=== PATIENT | female | born 1960 | race Caucasian/White ===

== ENCOUNTER 2016-12-12 14:24 | Inpatient (IN) | payer OTHER ==
[~2016-12-12] VITALS: Ht 152.4 cm; Wt 100.9 kg
[~2016-12-12 14:24] MED LIST: VENTAER INH
[2016-12-20] MEDS ORDERED: ACETAMINOPHEN 1000 MG/100 ML VIAL IV ONE (08:25)
[2016-12-20] MEDS ORDERED: metroNIDAZOLE 500 MG INJ 100 ML IV ONE (08:25)
[2016-12-20] MEDS ORDERED: ONDANSETRON HCL 4 MG/2 ML VIAL ONE (08:26)
[2016-12-20 08:29] VITALS: BP 138/77; PULSE 78; RESP 20; TEMP 97.7; O2SAT 96
[2016-12-20] MEDS ORDERED: OMEP20TA PO (08:29)
[2016-12-20] MEDS ORDERED: VENTAER INH (08:29)
--- NOTE | 2016-12-20 08:49 | EKG ---
Date Performed: 12/20/2016 Time Performed: 08:05:50 PTAGE: 56 years EKG: Sinus rhythm WITH FIRST DEGREE AV BLOCK NONSPECIFIC ST & T-WAVE ABNORMALITY ABNORMAL ECG NO PREVIOUS TRACING DOCTOR: Júnior Vargas Interpretating Date/Time 12/20/2016 08:47:28
[2016-12-20] MEDS ORDERED: LACTATED RINGER'S 1000 ML IV PRN (09:00)
[2016-12-20] MEDS ORDERED: ONDANSETRON HCL 4 MG/2 ML VIAL IV PUSH SCH (09:00)
[2016-12-20] MEDS ORDERED: INSULIN HUMAN REGULAR 1,000 UNITS/10 ML VIAL SQ PRN (09:00)
[2016-12-20] MEDS ORDERED: SODIUM CHLORID 0.9% 500 ML IV PRN (09:00)
[2016-12-20] MEDS ORDERED: POVIDONE IODINE 5% (ANTISEPSIS KIT) 4 APPLICATIONS EACH NARE PRN (09:00)
[2016-12-20] MEDS ORDERED: ACETAMINOPHEN 1000 MG/100 ML VIAL IV SCH (09:00)
[2016-12-20] MEDS ORDERED: METOPROLOL TARTRATE 25 MG TAB PO PRN (09:00)
[2016-12-20] MEDS ORDERED: CHLORHEXIDINE GLUCONATE 2 % 1 PACK (2 CLOTHS) TOPICAL PRN (09:00)
[2016-12-20] MEDS ORDERED: ceFAZolin 2 GM PREMIX 50 ML IV SCH (09:00)
[2016-12-20] MEDS ORDERED: metroNIDAZOLE 500 MG INJ 100 ML IV SCH (09:00)
[2016-12-20 12:00] VITALS: BP 139/81; PULSE 83; RESP 16; TEMP 95.5; O2SAT 91
[2016-12-20] MEDS ORDERED: LACTATED RINGER'S 1000 ML INJ 1,000 ML IV ONE (12:00)
[2016-12-20] MEDS ORDERED: ONDANSETRON HCL 4 MG/2 ML VIAL IV PUSH ONE (12:00)
[2016-12-20] MEDS ORDERED: ePHEDrine/NS 25 MG/5 ML SYR IV ONE (12:00)
[2016-12-20] MEDS ORDERED: PHENYLEPH/NS 1000 MCG/10 ML SYR IV ONE (12:00)
[2016-12-20] MEDS ORDERED: PROPOFOL 200 MG/20 ML AMP IV ONE (12:00)
[2016-12-20] MEDS ORDERED: BUPIVACAINE/EPINEPHRINE 0.25% 50 ML VIAL INFIL ONE (12:47)
[2016-12-20] MEDS ORDERED: SUGAMMADEX SODIUM 200 MG/2 ML VIAL IV PUSH ONE ×2 (16:21)
[2016-12-20] MEDS ORDERED: NALOXONE HCL 0.4 MG/ML AMP IV PRN (16:45)
[2016-12-20] MEDS ORDERED: MAGNESIUM HYDROXIDE SUSP 30 ML CUP PO PRN (16:45)
[2016-12-20] MEDS ORDERED: Post-op Orders (for Pharmacy) MISC XX ONE (16:45)
[2016-12-20] MEDS ORDERED: SODIUM CHLORIDE 0.9% FLUSH 10 ML FLUSH IV FLUSH PRN (16:45)
[2016-12-20] MEDS ORDERED: METOCLOPRAMIDE HCL 10 MG/2 ML VIAL IVS PRN (16:45)
[2016-12-20] MEDS ORDERED: *ONDANSETRON 4 MG VIAL PERIprocedural Use ONLY ONE (16:55)
[2016-12-20] MEDS ORDERED: MORPHINE SULFATE 30 MG/30 ML PCA IV SCH (17:00)
[2016-12-20] MEDS ORDERED: PROMETHAZINE HCL 25 MG SUPP RECTAL ONE (17:09)
[2016-12-20] MEDS ORDERED: fentaNYL CITRATE 250 MCG/5 ML AMP ONE ×2 (17:21→19:00)
[2016-12-20] MEDS: SODIUM CHLOR 0.9% 1000 ML INJ 1,000 ML IV SCH (17:34)
[2016-12-20] MEDS ORDERED: *morphine SULFATE 8 MG/ML PERIprocedure ONLY ONE (17:37)
--- NOTE | 2016-12-20 17:42 | RADRPT ---
EXAM DATE/TIME: 12/20/2016 17:07 [facility] COMPARISON: No previous studies available for comparison. INDICATIONS : Post laparoscopic paraesophageal hernia repair. Evaluate lung status. MEDICAL HISTORY : Asthma. SURGICAL HISTORY : Cholecystectomy. ENCOUNTER: Initial ACUITY: 1 day PAIN SCORE: Non-responsive. LOCATION: Bilateral chest FINDINGS: There is right sided pneumothorax with about 15-16 mm separation of apical pleural layers. The left l veronica is satisfactorily inflated. There is no definite infiltrate or effusion. Accounting for significa nt rotation, the cardiac contours are grossly unremarkable. CONCLUSION: Moderate right pneumothorax Singh Matos MD on December 20, 2016 at 17:37 Board Certified Radiologist. This report was verified electronically.
[2016-12-20] MEDS ORDERED: KETOROLAC TROMETHAMINE 30 MG/ML (IVP) VIAL ONE (17:49)
[2016-12-20] MEDS ORDERED: PROMETHAZINE HCL 25 MG SUPP RECTAL SCH (18:15)
[2016-12-20] MEDS ORDERED: METOCLOPRAMIDE HCL 10 MG/2 ML VIAL IV ONE (18:15)
[2016-12-20] MEDS ORDERED: KETOROLAC TROMETHAMINE 30 MG/ML (IVP) VIAL IV PUSH ONE (18:15)
[2016-12-20] MEDS ORDERED: DO NOT ADM ANY ANTICOAGULANT DRUGS PRN (18:15)
[2016-12-20] MEDS ORDERED: MIDAZOLAM HCL 5 MG/5 ML VIAL ONE (19:00)
--- NOTE | 2016-12-20 19:29 | PD.RAD ---
Post Procedure Progress Note Pre Procedure Diagnosis: (1) Pneumothorax Post Procedure Diagnosis: (1) Pneumothorax Procedure Date: Dec 20, 2016 Supervising Radiologist: Singh Matos Proceduralist/Assist: RT Chris(R)() Anesthesia: Local, Conscious Sedation Plan of Activity Patient to Unit: PACU Patient Condition: Fair See PACS Report for procedural detail/treatment Drainage Procedure Procedure 1 Imaging Guidance: Fluoroscopy Side: Right Procedure Type: Chest Tube Non-Tunneled Procedure: Placement South Korean: 10 Drainage: Pleurovac Singh Matos MD Dec 20, 2016 19:28
--- NOTE | 2016-12-20 19:54 | RADRPT ---
EXAM DATE/TIME: 12/20/2016 19:07 [facility] COMPARISON: No previous studies available for comparison. INDICATIONS : Patient presents with right sided pneumothorax in need of chest tube placement for lung reinflation. MEDICAL HISTORY : Fatty liver disease Sleep apnea Asthma SURGICAL HISTORY : Hiatal hernia repair AAKASH Luana ENCOUNTER: Initial ACUITY: 1 day PAIN SCORE: 0/10 LOCATION: N/A FLUORO TIME: 2.9 minutes IMAGE SERIES: 0 SEDATION TIME: minutes MEDICATION(S): 1.) 1 mg midazolam (Versed) IV 2.) 50 mcg fentanyl (Sublimaze) IV DEVICE(S): 1.) 10 Portuguese non-locking catheter 30CM PROCEDURE : 1. Fluoroscopically guided chest tube placement. 2. Conscious sedation with continuous EKG and oximetry monitoring. The risks, benefits and alternatives to the procedure were explained and verbal and written consent w as obtained. The site was prepped in sterile fashion. Full sterile technique was used, including ca p, mask, sterile gloves and gown and a large sterile sheet. Hand hygiene and 2% chlorhexidine and/or betadine/alcohol prep was utilized per protocol for cutaneous antisepsis. The skin and subcutaneous tissues were infiltrated with local anesthetic solution. With fluoroscopic guidance the chest was punctured between the first and second interspace and the pr escribed catheter was placed in the lung apex. Wall suction was applied. Post procedure images demon strate satisfactory position of the tube. The catheter was sutured in place and a Percu-Stay was juliana lied. Conscious sedation was performed with the prescribed dosages and duration as above in the presence of an independent trained radiology nurse to assist in the monitoring of the patient. EKG and oximetry remained stable throughout the procedure. The patient tolerated the procedure well and there were n o complications. The patient was sent to post anesthesia recovery in stable condition. CONCLUSION: Uncomplicated chest tube placement as above. Singh Matos MD on December 20, 2016 at 19:53 Board Certified Radiologist. This report was verified electronically.
--- NOTE | 2016-12-20 20:09 | RADRPT ---
EXAM DATE/TIME: 12/20/2016 19:45 [facility] COMPARISON: CHEST SINGLE AP, December 20, 2016, 17:07. INDICATIONS : Post chest tube placement. MEDICAL HISTORY : Asthma. SURGICAL HISTORY : Cholecystectomy. ENCOUNTER: Subsequent ACUITY: 1 day PAIN SCORE: Non-responsive. LOCATION: Bilateral chest FINDINGS: There has been interval placement of a right apical pigtail thoracostomy tube with resolution of righ t pneumothorax. The lungs are clear and well-inflated. Cardiac contours are stable and satisfactory. CONCLUSION: Chest tube placement with resolution of pneumothorax Singh Matos MD on December 20, 2016 at 20:06 Board Certified Radiologist. This report was verified electronically.
[2016-12-20] MEDS: metroNIDAZOLE 500 MG INJ 100 ML IV SCH (20:28)
[2016-12-20] MEDS: SODIUM CHLORIDE 0.9% FLUSH 10 ML FLUSH IV FLUSH SCH (21:00)
[2016-12-20 21:36] VITALS: O2SAT 96
[2016-12-20] MEDS: PCA - TOTAL MG MORPHINE DELIVERED PER SHIFT SCH (22:00)
[2016-12-20] MEDS: ONDANSETRON HCL 4 MG/2 ML VIAL IV PRN (22:43)
[2016-12-21] VITALS (8 sets, daily range): BP systolic 93–132; BP diastolic 53–74; PULSE 67–98; RESP 16–18; TEMP 96.1–99.2; O2SAT 94–98
[2016-12-21] MEDS: SODIUM CHLOR 0.9% 1000 ML INJ 1,000 ML IV SCH ×3 (03:33→20:55)
[2016-12-21] MEDS: metroNIDAZOLE 500 MG INJ 100 ML IV SCH ×2 (04:57→12:40)
[2016-12-21] MEDS: PCA - TOTAL MG MORPHINE DELIVERED PER SHIFT SCH ×3 (06:00→20:55)
--- NOTE | 2016-12-21 06:52 | RADRPT ---
EXAM DATE/TIME: 12/21/2016 06:19 [facility] COMPARISON: CHEST EXPIRATION ONLY, December 20, 2016, 19:45. INDICATIONS : Evaluate pneumothorax and chest tube on right, no coughing or shortness of breath MEDICAL HISTORY : asthma SURGICAL HISTORY : Cholecystectomy. hernia repair ENCOUNTER: Subsequent ACUITY: 2 days PAIN SCORE: 0/10 LOCATION: Right chest FINDINGS: A single portable frontal view of the chest shows a small caliber right thoracostomy tube. No pneumot horax. Heart is mildly enlarged. Bibasilar parenchymal consolidation. No effusions. Degenerative spin e. CONCLUSION: 1. No pneumothorax. 2. Bibasilar atelectasis. 3. Cardiomegaly. Arben Schaefer Jr., MD on December 21, 2016 at 6:50 Board Certified Radiologist. This report was verified electronically.
[2016-12-21] MEDS: SODIUM CHLORIDE 0.9% FLUSH 10 ML FLUSH IV FLUSH SCH ×2 (09:28→20:55)
[2016-12-21 11:18] LABS: AUTOMATED NEUTROPHIL # 9.5 TH/MM3 (1.8-7.7); BASOPHIL % 0.1 % (0.0-2.0); EOSINOPHIL % 0.1 % (0.0-4.0); HEMATOCRIT 32.3 % (35.0-46.0); HEMO FLAGS DIFF FINAL; LYMPH % 6.2 % (9.0-44.0); LYMPHOCYTE # 0.7 TH/MM3 (1.0-4.8); MEAN CELL VOLUME 91.9 FL (80.0-100.0); MEAN CORPUSCULAR HEMOGLOBIN 31.4 PG (27.0-34.0); MEAN CORPUSCULAR HGB CONC 34.2 % (32.0-36.0); MONO % 3.8 % (0.0-8.0); NEUT % 89.8 % (16.0-70.0); PLATELET COUNT 204 TH/MM3 (150-450); RED BLOOD COUNT 3.51 MIL/MM3 (4.00-5.30); RED CELL DISTRIBUTION WIDTH 13.7 % (11.6-17.2); WHITE BLOOD COUNT 10.6 TH/MM3 (4.0-11.0)
[2016-12-21 11:39] LABS: POTASSIUM 3.7 MEQ/L (3.5-5.1)
[2016-12-21] MEDS: PANTOPRAZOLE SODIUM 40 MG VIAL IV PUSH SCH (12:40)
[2016-12-21] MEDS: ENOXAPARIN SODIUM 40 MG/0.4 ML SYRINGE SQ SCH (16:22)
[2016-12-22] VITALS: BP 119/56; PULSE 74; RESP 16; TEMP 97.7; O2SAT 93
[2016-12-22] MEDS: SODIUM CHLOR 0.9% 1000 ML INJ 1,000 ML IV SCH ×2 (05:47→13:36)
[2016-12-22] MEDS: PCA - TOTAL MG MORPHINE DELIVERED PER SHIFT SCH ×3 (05:47→20:03)
[2016-12-22 08:00] VITALS: BP 123/74; PULSE 72; RESP 17; TEMP 98.1; O2SAT 96
[2016-12-22] MEDS: SODIUM CHLORIDE 0.9% FLUSH 10 ML FLUSH IV FLUSH SCH ×2 (09:00→20:03)
[2016-12-22] MEDS: PANTOPRAZOLE SODIUM 40 MG VIAL IV PUSH SCH (09:50)
--- NOTE | 2016-12-22 11:31 | RADRPT ---
EXAM DATE/TIME: 12/22/2016 11:01 [facility] COMPARISON: CHEST EXPIRATION ONLY, December 21, 2016, 6:19. INDICATIONS : Evaluate pneumothorax. Post chest tube placement. MEDICAL HISTORY : None. SURGICAL HISTORY : Paraeshophageal hernia ENCOUNTER: Subsequent ACUITY: 3 days PAIN SCORE: 0/10 LOCATION: Bilateral chest FINDINGS: Right apical pigtail thoracostomy tube is stable in good position. There is no evidence of pneumothor ax. Vascular crowding is exacerbated by expiratory technique. There appears be mild basilar atelectas is on the left. Cardiac contour satisfactory CONCLUSION: No evidence of pneumothorax. Singh Matos MD on December 22, 2016 at 11:13 Board Certified Radiologist. This report was verified electronically.
--- NOTE | 2016-12-22 13:09 | RADRPT ---
EXAM DATE/TIME: 12/22/2016 12:29 [facility] COMPARISON: No previous studies available for comparison. INDICATIONS : Evaluate pneumothorax MEDICAL HISTORY : Paraesophageal hernia SURGICAL HISTORY : None. ENCOUNTER: Subsequent ACUITY: 3 days PAIN SCORE: 0/10 LOCATION: Bilateral chest FINDINGS: Right apical pigtail thoracostomy tube is stable in good position. There is no evidence of pneumothor ax. Mild left base atelectasis is again suspected. Cardiac contours are stable accounting for differe nces in technique and projection. CONCLUSION: No pneumothorax Singh Matos MD on December 22, 2016 at 13:05 Board Certified Radiologist. This report was verified electronically.
--- NOTE | 2016-12-22 13:11 | HHI.PR ---
Subjective Subjective Notes pt comfortable no cp no sob keyon liquids Objective Vitals/I&O Vital Signs Date Time Temp Pulse Resp B/P Pulse Ox O2 Delivery O2 Flow Rate FiO2 12/22/16 08:00 98.1 72 17 123/74 96 12/21/16 21:24 21 12/21/16 10:50 Nasal Cannula 2.00 Extremities: Perfused Wound Wound : Wound Location: Abdomen Appearance: Clean & Dry A/P Assessment and Plan s/p lap paraesophageal hernia repair ptx post op ct out today home tomorrow Hilario Ryan MD Dec 22, 2016 13:11
[2016-12-22] MEDS: ACETAMINOPHEN 325MG/HYDROcodone 7.5MG/15ML UDC PO PRN ×2 (13:35→20:03)
--- NOTE | 2016-12-22 14:52 | RADRPT ---
EXAM DATE/TIME: 12/22/2016 14:38 [facility] COMPARISON: CHEST EXPIRATION ONLY, December 22, 2016, 12:29. INDICATIONS : Post chest tube removal. MEDICAL HISTORY : Paraesophageal hernia SURGICAL HISTORY : None. ENCOUNTER: Subsequent ACUITY: 1 day PAIN SCORE: 0/10 LOCATION: Right chest FINDINGS: Right-sided pigtail thoracostomy tube has been removed. There is no evidence of pneumothorax. Chest i s otherwise stable with mild probable left base atelectasis. Cardiac contour is unchanged accounting for differences in projection. CONCLUSION: Chest tube removed. No evidence of pneumothorax. Singh Matos MD on December 22, 2016 at 14:48 Board Certified Radiologist. This report was verified electronically.
[2016-12-22 16:00] VITALS: BP 120/73; PULSE 78; RESP 16; TEMP 95.4; O2SAT 95
[2016-12-22] MEDS: ONDANSETRON HCL 4 MG/2 ML VIAL IV PRN (17:58)
[2016-12-22] MEDS: ENOXAPARIN SODIUM 40 MG/0.4 ML SYRINGE SQ SCH (17:58)
[2016-12-22 20:00] VITALS: BP 130/63; PULSE 83; RESP 20; TEMP 98.7; O2SAT 94
[2016-12-23] VITALS: BP 138/70; PULSE 83; RESP 20; TEMP 98.7; O2SAT 94
[2016-12-23] MEDS: PCA - TOTAL MG MORPHINE DELIVERED PER SHIFT SCH (04:54)
[2016-12-23] MEDS: SODIUM CHLOR 0.9% 1000 ML INJ 1,000 ML IV SCH (04:54)
[2016-12-23 08:00] VITALS: BP 144/82; PULSE 83; RESP 20; TEMP 98.1; O2SAT 94
[2016-12-23] MEDS: PANTOPRAZOLE SODIUM 40 MG VIAL IV PUSH SCH (08:38)
[2016-12-23] MEDS: SODIUM CHLORIDE 0.9% FLUSH 10 ML FLUSH IV FLUSH SCH (08:38)
[2016-12-23] MEDS: ACETAMINOPHEN 325MG/HYDROcodone 7.5MG/15ML UDC PO PRN (08:56)
[2016-12-23 10:07] VITALS: RESP 18
--- NOTE | 2016-12-23 10:40 | HHI.PR ---
Subjective Subjective Notes pt comfortable no cp no sob keyon liquids Objective Vitals/I&O Vital Signs Date Time Temp Pulse Resp B/P Pulse Ox O2 Delivery O2 Flow Rate FiO2 12/23/16 10:07 18 12/23/16 00:00 98.7 83 138/70 94 12/21/16 21:24 21 12/21/16 10:50 Nasal Cannula 2.00 Abdomen: Post-op tenderness Extremities: Perfused Wound Wound : Wound Location: Abdomen Appearance: Clean & Dry A/P Assessment and Plan s/p lap paraesophageal hernia repair ptx post op doing well D/c Home today Hilario Ryan MD Dec 23, 2016 10:39
--- NOTE | 2016-12-25 07:46 | RADRPT ---
EXAM DATE/TIME: 12/22/2016 13:20 [facility] COMPARISON: No previous studies available for comparison. INDICATIONS : Hemo/pneumothorax resolved DEVICE(S): 1.) Vaseline occlusive dressing PROCEDURE : Chest tube removal. Using aseptic technique the previously placed chest tube was easily removed in one piece and Vaseline gauze and sterile dressing was applied. Chest radiograph is to be obtained. CONCLUSION: Uncomplicated chest tube removal. Singh Matos MD on December 25, 2016 at 7:44 Board Certified Radiologist. This report was verified electronically.
--- NOTE | 2017-01-01 10:39 | MP ---
cc: LEONOR RYAN DATE OF SURGERY: 12/20/2016 DATE OF : 1960 REOPERATIVE DIAGNOSIS Reflux with recurrent paraesophageal hernia. POSTOPERATIVE DIAGNOSIS Reflux with recurrent paraesophageal hernia. PROCEDURE Robot-assisted laparoscopic recurrent paraesophageal hernia repair with gastropexy. SURGEON Leonor Ryan ANESTHESIA General endotracheal. ESTIMATED BLOOD LOSS Scant. FINDINGS Large paraesophageal hernia with inflammation around the hiatus. Fundoplication appeared intact. SPECIMENS None. COMPLICATIONS None. OPERATION The patient was brought to the operating room and placed on the operating table in supine position. Bilateral sequential inflation devices were placed on the lower extremities. General anesthesia was instituted. A Beck catheter was placed. The abdomen was prepped and draped sterilely. A point 15 cm distal to the xiphoid in the midline was anesthetized with 0.25% Marcaine with epinephrine. A skin incision was made. A 5 mm OptiView port was placed under direct vision and pneumoperitoneum created. Under direct vision a 5 mm left upper quadrant, 8 mm left upper quadrant, robotic 14 mm right upper quadrant, robotic 5 mm right upper quadrant port was placed. Prior to placement of all ports the skin and peritoneum were anesthetized with 0.25% Marcaine with epinephrine. The patient was placed in reverse Trendelenburg position left side up. A Phyllis-Flex retractor was placed. The left lobe of the liver was retracted. The abdominal cavity was inspected with findings as above. At this point four silk sutures, Ray-Porfirio gauze and a Sheldon drain was placed into the abdominal cavity. The laparoscopic tower was removed from the patient's bedside. The da Yan robot was then brought in to the patient's bedside and docked in place after changing out the 5 mm port in the epigastrium to a 12 mm port. I then broke scrub and went to the console. The dissection was started on the patient's right. The right crura of the diaphragm was identified. There were dense adhesions in this region. Using blunt dissection and a Harmonic scalpel the crura of the diaphragm was dissected. Dissection was continued anteriorly, dissecting off the left crura of the diaphragm. Posterior dissection from right to left was undertaken. At this point a Sheldon drain was placed around the stomach. Using the Sheldon drain for retraction the mediastinum was then dissected identifying the distal esophagus. The left and right vagus nerve were preserved during the dissection. The GE junction was brought into the abdominal cavity. The patient's graft appeared to be intact. During the dissection of the right the crura was torn. The crura of the diaphragm was approximated with 0 Vicryl sutures in a [id number] manner. Three stitches were placed interrupted inferior to the esophagus. An 0 silk suture was then used to pexy the greater curve of the stomach to the abdominal wall. The operative field was inspected and hemostasis was present. The da Yan robot was then undocked. The laparoscopic tower was brought back to the patient's bedside. I then scrubbed back in, removed all needles, Fenelton and Ray-Porfirio gauze. The 12 mm port in the epigastrium was then closed with 0 silk suture using a fascial closure device. The Phyllis-Flex retractor was then removed. The CO2 was released. All ports were removed. All skin incisions were closed with 4-0 Monocryl. The abdominal wall was cleaned and a sterile dressing placed. The patient was awakened and taken to the recovery room. MD LAI Wiseman/GIOVANNI /10:02 AM /10:26 AM
== END 2016-12-23 13:36 | disposition home or self-care (01) | DRG 327 ==
LOC: HSDI 12-20 06:56 → N07A 12-20 21:27
PROVIDERS: ADMIT Surgery; ATTEND Surgery
PROC: 0BQR4ZZ (ICD-10-PCS; 2016-12-20)
PROC: 0W9930Z Drainage of Right Pleural Cavity with Drainage Device, Percutaneous Approach (ICD-10-PCS; 2016-12-20)
PROC: 0DS64ZZ Reposition Stomach, Percutaneous Endoscopic Approach (ICD-10-PCS; 2016-12-20)
PROC: 8E0W4CZ Robotic Assisted Procedure of Trunk Region, Percutaneous Endoscopic Approach (ICD-10-PCS; 2016-12-20)
PROC: 0BQS4ZZ (ICD-10-PCS; principal; 2016-12-20 11:58)
PROC: 0WP8X0Z Removal of Drainage Device from Chest Wall, External Approach (ICD-10-PCS; 2016-12-22)
DX: K44.9 Diaphragmatic hernia without obstruction or gangrene (principal); J95.811 Postprocedural pneumothorax; Z68.41 Body mass index [BMI] 40.0-44.9, adult; K76.0 Fatty (change of) liver, not elsewhere classified; K21.9 Gastro-esophageal reflux disease without esophagitis; G47.30 Sleep apnea, unspecified; J45.909 Unspecified asthma, uncomplicated; D64.9 Anemia, unspecified; E66.9 Obesity, unspecified
CPT/HCPCS: 32551; 71010; 80048; 85025; 93005; 94150; 99152; C1729; C1769; C9113; J0131; J0690; J1650; J1885; J2250; J2270; J2370; J2405; J2765; J3010; J7030; J7120